=== PATIENT | male | born 1955 | race Caucasian/White ===

== ENCOUNTER 2023-10-23 11:09 | Inpatient (IN) | payer OTHER ==
[~2023-10-23] VITALS: Ht 185.4 cm; Wt 109.0 kg
[2023-10-23] MEDS: ASPirin 325 MG TAB PO ONE (11:55)
[2023-10-23] MEDS: NITROGLYCERIN 0.4 MG SL TAB SL ONE (11:55)
[2023-10-23 12:00] LABS: Hematocrit 48.6 % (41.0-53.0); Hemoglobin 16.4 g/dL (13.5-17.5); Mean Corpuscular Hemoglobin 33.5 pg (28.0-32.0); Mean Corpuscular Hgb Conc. 33.7 g/dL (32.0-36.0); Mean Corpuscular Volume 99.4 fL (80.0-100.0); Red Blood Cells 4.89 10^6/uL (4.5-5.90); Red Cell Distribution Width 14.3 % (11.8-14.3); White Blood Cell 20.4 10^3/uL (4.4-10.8)
[2023-10-23 12:05] LABS: Basophils % (manual) 0 (0.0-2.0); Blast Cells 0; Eosinophils % (manual) 0 (0-7); Metamyelocytes % 0; Myelocytes % 0; Promyelocytes % 0; Reactive Lymphocytes 0
[2023-10-23 12:18] LABS: Band Neutrophils % (manual) 13; Lymphocytes % (manual) 7 (10.0-50.0); Monocytes % (manual) 3 (0-12); Platelet Estimate Adequate
[2023-10-23 13:00] LABS: Chloride 105 mmol/L (98-107); Potassium 3.9 mmol/L (3.5-5.1); Sodium 136 mmol/L (136-145)
[2023-10-23 13:01] LABS: Anion Gap 11 (5-15); Calcium 9.3 mg/dL (8.7-10.4); Carbon Dioxide 20 mmol/L (20-30)
[2023-10-23 13:06] LABS: BUN/Creatinine Ratio 12.7 (10.0-20.0); Blood Urea Nitrogen 19 mg/dL (9-23); Glucose 121 mg/dL (74-106)
[2023-10-23 14:43] VITALS: PULSE 106; RESP 19; O2SAT 96
[2023-10-23 14:46] LABS: Urine Bacteria None Seen /hpf (None Seen); Urine Blood 3+ /uL (Negative); Urine Clarity Clear (Clear); Urine Color Yellow (Yellow); Urine Mucus FEW (None Seen); Urine Protein, UAD 2+ (Negative); Urine Specific Gravity 1.029 (1.001-1.035); Urine Urobilinogen Normal (Negative); Urine WBC 5 /hpf (0 - 3); Urine pH 6.5 (5.0-9.0)
[2023-10-23] MEDS ORDERED: DOCUSATE SOD 100 MG CAP PO PRN (16:30)
[2023-10-23] MEDS ORDERED: ONDANSETRON HCL 4 MG/2 ML VIAL IV PRN (16:30)
[2023-10-23] MEDS ORDERED: HYDROmorphone HCL 2 MG/ML VL/or syr IV PRN (16:30)
[2023-10-23] MEDS ORDERED: HYDROcodone-ACET 5/325MG TAB PO PRN (16:30)
[2023-10-23] MEDS ORDERED: cefTRIAXone 1GM/50ML D5W 50 ML IV SCH (16:45)
[2023-10-23] MEDS ORDERED: metroNIDAZOLE 500MG/100ML 100 ML IV SCH (16:45)
[2023-10-23] MEDS: ceFAZolin 1GM/50ML 50 ML IV ONE (16:57)
[2023-10-23] MEDS: AZITHROMYCIN 500MG/ 250ML 250 ML IV ONE (16:57)
[2023-10-23] MEDS: SODIUM CHLORIDE 0.9% 1,000 ML IV ONE ×2 (16:58)
[2023-10-23] MEDS: ACETAMINOPHEN 325 MG TAB PO PRN (16:59)
[2023-10-23] MEDS: LACTATED RINGER'S 1,000 ML IV ONE (17:00)
[2023-10-23 17:40] LABS: Lactic Acid w/Reflex 2.5 mmol/L (0.4-2.0)
[2023-10-23 18:12] LABS: Creatinine, Urine 265.59 mg/dL (30.0-125.0)
[2023-10-23] MEDS: SODIUM CHLOR 0.9% PF (SALINE LOCK) 10ML VIAL/SYR IV SCH (21:44)
[2023-10-24] VITALS (9 sets, daily range): BP systolic 108–138; BP diastolic 18–76; PULSE 74–99; RESP 16–30; TEMP 98.7; O2SAT 90–98
[2023-10-24] MEDS ORDERED: VANCOMYCIN PER PHARMACY 0 MG IV SCH (16:45)
[2023-10-24] MEDS ORDERED: VANCOMYCIN 1GM/200ML 200 ML IV ONE (17:00)
[2023-10-24 17:05] LABS: Base Excess -1.8 mmol/L (-2.0-2.0)
[2023-10-24 17:15] LABS: Basophils # (auto) 0.1 10 ^3/uL (0-0.2); Basophils % (auto) 0.6 % (0.0-2.0); Eosinophils # (auto) 0 10 ^3/uL (0-0.8); Eosinophils % (auto) 0.1 % (0.0-7.0); Hematocrit 39.5 % (41.0-53.0); Hemoglobin 13.5 g/dL (13.5-17.5); Lymphocytes # (auto) 0.8 10 ^3/uL (0.4-5.4); Lymphocytes % (auto) 6.1 % (10.0-50.0); Mean Corpuscular Hemoglobin 33.2 pg (28.0-32.0); Mean Corpuscular Hgb Conc. 34.1 g/dL (32.0-36.0); Mean Corpuscular Volume 97.4 fL (80.0-100.0); Monocytes # (auto) 0.6 10 ^3/uL (0-1.3); Monocytes % (auto) 4.9 % (0.0-12.0); Neutrophils # (auto) 11.5 10 ^3/uL (1.6-8.6); Neutrophils % (auto) 88.3 % (37.0-80.0); Red Blood Cells 4.05 10^6/uL (4.5-5.90); Red Cell Distribution Width 13.9 % (11.8-14.3)
[2023-10-24 17:20] LABS: Chloride 106 mmol/L (98-107); Potassium 3.6 mmol/L (3.5-5.1); Sodium 133 mmol/L (136-145)
[2023-10-24 17:21] LABS: Anion Gap 7 (5-15); Calcium 8.3 mg/dL (8.5-10.1); Carbon Dioxide 20 mmol/L (20-30)
[2023-10-24 17:26] LABS: BUN/Creatinine Ratio 11.3 (10.0-20.0); Blood Urea Nitrogen 14 mg/dL (9-23); Glucose 106 mg/dL (74-106)
[2023-10-24] MEDS: IOHEXOL 350 MG/ML 100ML IJ ONE (17:36)
[2023-10-24] MEDS ORDERED: HEPARIN SODIUM (PORCINE) 5000 UNITS/ML 1ML VIAL IV ONE (18:15)
[2023-10-24] MEDS ORDERED: HEPARIN DRIP/D5W 100UNITS/ML 250 ML IV SCH (18:15)
[2023-10-24] MEDS: ENOXAPARIN SOD 100 MG/1 ML SYRINGE SC SCH (18:30)
[2023-10-24] MEDS: AMPICILLIN & SULBACTAM SODIUM 3 GM in SODIUM CHL 0.9% 100 ML IV SCH (18:30)
[2023-10-24] MEDS: VANCOMYCIN 1GM/200ML 200 ML IV SCH (18:36)
[2023-10-24 18:47] LABS: Basophils # (auto) 0 10 ^3/uL (0-0.2); Basophils % (auto) 0.1 % (0.0-2.0); Eosinophils # (auto) 0 10 ^3/uL (0-0.8); Hematocrit 39.3 % (41.0-53.0); Lymphocytes # (auto) 0.6 10 ^3/uL (0.4-5.4); Lymphocytes % (auto) 5.4 % (10.0-50.0); Mean Corpuscular Hemoglobin 32.2 pg (28.0-32.0); Mean Corpuscular Volume 97.6 fL (80.0-100.0); Monocytes # (auto) 0.7 10 ^3/uL (0-1.3); Monocytes % (auto) 5.7 % (0.0-12.0); Neutrophils # (auto) 10.4 10 ^3/uL (1.6-8.6); Neutrophils % (auto) 88.8 % (37.0-80.0); Red Blood Cells 4.03 10^6/uL (4.5-5.90); Red Cell Distribution Width 13.8 % (11.8-14.3); White Blood Cell 11.7 10^3/uL (4.4-10.8)
[2023-10-24 19:01] LABS: INR 1.04 (0.9-1.15); Partial Thromboplastin Time 37.1 SEC (24.5-34.5)
[2023-10-24] MEDS: MIDAZOLAM DRIP 50 mg/50mL 50 ML IV ONE (20:29)
[2023-10-24] MEDS: ETOMIDATE (2MG/ML) 20ML VIAL IV ONE (20:41)
[2023-10-24] MEDS: SUCCINYLCHOLINE CHLORIDE 20 MG/ML 10ML VIAL IV ONE (20:42)
[2023-10-24] MEDS: MIDAZOLAM DRIP 50 mg/50mL 50 ML IV SCH (21:00)
[2023-10-24] MEDS: ACETAMINOPHEN IV 1000 MG/100ML (10MG/ML) IV ONE (21:21)
[2023-10-24 21:40] LABS: Base Excess -4.1 mmol/L (-2.0-2.0)
[2023-10-24] MEDS: PROPOFOL 100 ML IV SCH (21:41)
[2023-10-24 22:30] LABS: Calcium 8.3 mg/dL (8.7-10.4); Carbon Dioxide 15 mmol/L (20-30)
[2023-10-24 22:31] LABS: Chloride 105 mmol/L (98-107)
[2023-10-24 22:35] LABS: BUN/Creatinine Ratio 8.6 (10.0-20.0); Blood Urea Nitrogen 12 mg/dL (9-23); Glucose 151 mg/dL (74-106)
[2023-10-24 22:37] LABS: Creatine Kinase IFCC 755 U/L (46-171)
[2023-10-24] MEDS: NOREPINEPHRINE 8 MG/250ML KIT 250 ML IV ONE (22:38)
[2023-10-24] MEDS: NOREPINEPHRINE 8 MG/250ML KIT 250 ML IV SCH (22:40)
[2023-10-24 22:58] LABS: Anion Gap 12 (5-15); Sodium 132 mmol/L (136-145)
[2023-10-25] VITALS (13 sets, daily range): BP systolic 100–133; BP diastolic 53–76; PULSE 57–77; RESP 18–20; O2SAT 96–100
[2023-10-25 02:14] LABS: Basophils # (auto) 0 10 ^3/uL (0-0.2); Basophils % (auto) 0.3 % (0.0-2.0); Eosinophils # (auto) 0 10 ^3/uL (0-0.8); Eosinophils % (auto) 0.1 % (0.0-7.0); Hematocrit 40.6 % (41.0-53.0); Hemoglobin 13.7 g/dL (13.5-17.5); Lymphocytes # (auto) 0.9 10 ^3/uL (0.4-5.4); Lymphocytes % (auto) 7.4 % (10.0-50.0); Mean Corpuscular Hemoglobin 33.4 pg (28.0-32.0); Mean Corpuscular Hgb Conc. 33.7 g/dL (32.0-36.0); Mean Corpuscular Volume 99.1 fL (80.0-100.0); Monocytes # (auto) 0.7 10 ^3/uL (0-1.3); Monocytes % (auto) 5.6 % (0.0-12.0); Neutrophils # (auto) 10.6 10 ^3/uL (1.6-8.6); Neutrophils % (auto) 86.6 % (37.0-80.0); Red Blood Cells 4.09 10^6/uL (4.5-5.90); Red Cell Distribution Width 13.8 % (11.8-14.3); White Blood Cell 12.3 10^3/uL (4.4-10.8)
[2023-10-25 02:39] LABS: INR 0.99 (0.9-1.15); Prothrombin Time 10.5 sec (9.3-11.8)
[2023-10-25 03:46] LABS: Partial Thromboplastin Time 33.2 SEC (24.5-34.5); Prothrombin Time 10.6 sec (9.3-11.8)
[2023-10-25] MEDS: SODIUM CHLORIDE 0.9% 1,000 ML IV SCH (03:54)
[2023-10-25 06:17] LABS: Albumin 3.5 g/dL (3.2-4.8); Alkaline Phosphatase 52 U/L (46-116); Anion Gap 10 (5-15); Aspartate Aminotransferase 56 U/L (13-40); BUN/Creatinine Ratio 13.1 (10.0-20.0); Bilirubin, Total 0.6 mg/dL (0.2-1.0); Blood Urea Nitrogen 18 mg/dL (9-23); Calcium 8.3 mg/dL (8.7-10.4); Carbon Dioxide 20 mmol/L (20-30); Chloride 108 mmol/L (98-107); Glucose 139 mg/dL (74-106); Potassium 3.7 mmol/L (3.5-5.1); Sodium 138 mmol/L (136-145)
[2023-10-25 06:18] LABS: Alanine Aminotransferase 50 U/L (7-40); Total Protein 5.4 g/dL (5.7-8.2)
[2023-10-25 07:52] LABS: Base Excess -5.4 mmol/L (-2.0-2.0)
[2023-10-25] MEDS: ENOXAPARIN SOD 120 MG/0.8 ML SYRINGE SC SCH (12:26)
[2023-10-26] VITALS (13 sets, daily range): BP systolic 92–117; BP diastolic 51–78; PULSE 62–75; RESP 16–21; TEMP 98.6; O2SAT 96–99
[2023-10-26 04:07] LABS: Basophils # (auto) 0.1 10 ^3/uL (0-0.2); Basophils % (auto) 0.7 % (0.0-2.0); Eosinophils # (auto) 0.1 10 ^3/uL (0-0.8); Eosinophils % (auto) 1.2 % (0.0-7.0); Hematocrit 39.3 % (41.0-53.0); Hemoglobin 13.1 g/dL (13.5-17.5); Lymphocytes # (auto) 0.8 10 ^3/uL (0.4-5.4); Lymphocytes % (auto) 9.3 % (10.0-50.0); Mean Corpuscular Hemoglobin 33.2 pg (28.0-32.0); Mean Corpuscular Hgb Conc. 33.4 g/dL (32.0-36.0); Mean Corpuscular Volume 99.3 fL (80.0-100.0); Monocytes # (auto) 0.7 10 ^3/uL (0-1.3); Monocytes % (auto) 7.9 % (0.0-12.0); Neutrophils # (auto) 7.2 10 ^3/uL (1.6-8.6); Neutrophils % (auto) 80.9 % (37.0-80.0); Nucleated Red Blood Cells % 0.1 %; Red Blood Cells 3.96 10^6/uL (4.5-5.90); Red Cell Distribution Width 14.1 % (11.8-14.3); White Blood Cell 8.9 10^3/uL (4.4-10.8)
[2023-10-26 04:15] LABS: Chloride 114 mmol/L (98-107); Potassium 3.6 mmol/L (3.5-5.1); Sodium 141 mmol/L (136-145)
[2023-10-26 04:16] LABS: Anion Gap 8 (5-15); Calcium 8.5 mg/dL (8.7-10.4); Carbon Dioxide 19 mmol/L (20-30)
[2023-10-26 04:21] LABS: BUN/Creatinine Ratio 8.1 (10.0-20.0); Blood Urea Nitrogen 10 mg/dL (9-23); Glucose 108 mg/dL (74-106); Magnesium 2.3 mg/dL (1.6-2.6)
[2023-10-26 06:35] LABS: Base Excess -5.2 mmol/L (-2.0-2.0)
== END 2023-10-26 22:11 | disposition short-term general hospital (02) | DRG 871 ==
LOC: ER 11:09 → EDBD 11:09 → OVERFLOW 16:32
PROVIDERS: ADMIT Nurse Practitioner Acute Care; ATTEND Nurse Practitioner Acute Care
PROC: 0BH17EZ Insertion of Endotracheal Airway into Trachea, Via Natural or Artificial Opening (ICD-10-PCS; principal; 2023-10-23)
PROC: 02H633Z Insertion of Infusion Device into Right Atrium, Percutaneous Approach (ICD-10-PCS; 2023-10-23)
PROC: B548ZZA Ultrasonography of Superior Vena Cava, Guidance (ICD-10-PCS; 2023-10-23)
PROC: 5A0935A Assistance with Respiratory Ventilation, Less than 24 Consecutive Hours, High Flow/Velocity Cannula (ICD-10-PCS; 2023-10-24)
PROC: 5A1945Z Respiratory Ventilation, 24-96 Consecutive Hours (ICD-10-PCS; 2023-10-25)
DX: A41.9 Sepsis, unspecified organism (principal); J96.01 Acute respiratory failure with hypoxia; R65.21 Severe sepsis with septic shock; L03.116 Cellulitis of left lower limb; N17.9 Acute kidney failure, unspecified; J98.11 Atelectasis; E87.20 Acidosis, unspecified; E66.9 Obesity, unspecified; J98.4 Other disorders of lung; K44.9 Diaphragmatic hernia without obstruction or gangrene; I12.9 Hypertensive chronic kidney disease with stage 1 through stage 4 chronic kidney disease, or unspecified chronic kidney disease; N18.9 Chronic kidney disease, unspecified; Z86.718 Personal history of other venous thrombosis and embolism; Z88.5 Allergy status to narcotic agent; Z79.01 Long term (current) use of anticoagulants; Z68.31 Body mass index [BMI] 31.0-31.9, adult
CPT/HCPCS: 36415; 36600; 71045; 71275; 80048; 80053; 80202; 81001; 81241; 82550; 82570; 82805; 82962; 83605; 83735; 83880; 84300; 84484; 85007; 85025; 85027; 85379; 85610; 85730; 87040; 87070; 87086; 87205; 93005; 93306; 93970; 93975; 94002; 94003; 96365; 96368; 96372; G0378; J0131; J0330; J2250; J2704